=== PATIENT | female | born 1995 | race Hispanic/Latino ===

== ENCOUNTER 2020-10-06 13:22 | Observation (INO) | payer MEDICAID, OTHER ==
[2020-10-06 14:03] VITALS: BMI 28.0
[2020-10-06] MEDS ORDERED: Acetaminophen 325 MG TAB PO PRN (14:07)
[2020-10-06] MEDS ORDERED: hydrALAZINE 20 MG/ML VIAL SLOW IVP PRN (14:07)
[2020-10-06] MEDS ORDERED: Lactated Ringer's 1,000 ML IV SCH (14:15)
[2020-10-06 14:50] LABS: Bilirubin Neg (Negative); Blood, Urine Negative (Negative); Clarity Clear (Clear); Glucose, Urine (Dipstick) Normal (Negative); Ketone, Urine 150 mg/dL (Negative); Leukocyte 25 (Negative); Nitrite Negative (Negative); Protein, Urine (Dipstick) 15 mg/dl (Neg-Trace); pH, Urine 6.5 (5.0-9.0)
[2020-10-06 15:01] LABS: Bacteria/HPF Rare-Few HPF (None Seen); Mucous/LPF Rare LPF (<2+); RBC/HPF 0-3 HPF (0-3); WBC/HPF 0-3 HPF (0-3)
[2020-10-06 15:03] LABS: #Monocytes 1.3 10x3/uL (0.0-1.1); #Neutrophils 10.3 10x3/uL (1.5-8.4); %Basophils 0.2 % (0.0-2.0); %Eosinophils 0.1 % (0.0-6.0); %Lymphocytes 7.8 % (18.0-47.0); %Monocytes 10.4 % (0.0-10.0); %Neutrophils 80.5 % (40.0-75.0); Hemoglobin 9.7 g/dL (12.0-15.5); Mean Corpuscular HGB CONC 31.5 g/dL (32.0-36.0); Mean Corpuscular Hemoglobin 26.1 pg (27.0-33.0); Mean Platelet Volume 10.7 fl (7.4-10.4); Platelet Count 240 10x3/uL (150-450); Red Blood Cell (RBC) Count 3.71 10x6/uL (3.90-5.03); White Blood Cell (WBC) Count 12.8 10x3/uL (3.5-10.5)
[2020-10-06] MEDS ORDERED: Promethazine HCl 25 MG/ML VIAL IM PRN (16:27)
[2020-10-06] MEDS ORDERED: Ondansetron PF 4 MG/2 ML Vial IVP PRN (16:27)
[2020-10-06 17:39] LABS: Amphetamine Not Detected (NotDetected); Barbiturates Screen Not Detected (NotDetected); Benzodiazepine Screen Not Detected (NotDetected); Cocaine Metabolite Screen Not Detected (NotDetected); Methadone Not Detected (NotDetected); Methamphetamine Not Detected (NotDetected); Opiate Screen Not Detected (NotDetected); Oxycodone Screen Not Detected (NotDetected); Phencyclidine (PCP) Not Detected (NotDetected); THC/Cannabinoid Screen Not Detected (NotDetected); Tricyclic Screen Not Detected (NotDetected)
[2020-10-06] MEDS: cefTRIAXone\\ROCEPHIN 1 GM in Sodium Chloride 0.9% 100 ML IVPB SCH (18:23)
[2020-10-06] MEDS: Lactated Ringer's 1,000 ML IV SCH (19:43)
[2020-10-06] MEDS: Acetaminophen 500 MG TAB PO PRN (21:18)
[2020-10-06 23:27] LABS: Amnisure Test No Membranes Rupture (No Rupture)
[2020-10-07] MEDS: Lactated Ringer's 1,000 ML IV SCH ×2 (00:02→10:10)
[2020-10-07] MEDS: cefTRIAXone\\ROCEPHIN 1 GM in Sodium Chloride 0.9% 100 ML IVPB SCH (05:13)
[2020-10-07] MEDS: Acetaminophen 500 MG TAB PO PRN (05:27)
[2020-10-07] MEDS ORDERED: Acetaminophen 500 MG TAB PO PRN (09:11)
[2020-10-07] MEDS ORDERED: Ferrous Sulfate 325 MG TAB PO SCH ×2 (09:45→17:00)
[2020-10-07] MEDS ORDERED: cefTRIAXone\\ROCEPHIN 2 GM in Sodium Chloride 0.9% 100 ML IVPB SCH (16:00)
[2020-10-07 16:41] VITALS: BP 109/61; TEMP 98.4
== END 2020-10-07 17:50 | disposition home health service, planned readmission (86) ==
LOC: CSHLD/OP 13:22 → CSHLD 16:27 → CSHANTE 10-07 09:25
PROVIDERS: ADMIT Family Medicine; ATTEND Family Medicine
DX: O47.03 False labor before 37 completed weeks of gestation, third trimester (principal); O99.013 Anemia complicating pregnancy, third trimester; D50.9 Iron deficiency anemia, unspecified; O23.43 Unspecified infection of urinary tract in pregnancy, third trimester; O99.891 Other specified diseases and conditions complicating pregnancy; R00.0 Tachycardia, unspecified; O98.713 Human immunodeficiency virus [HIV] disease complicating pregnancy, third trimester; Z21 Asymptomatic human immunodeficiency virus [HIV] infection status; Z3A.36 36 weeks gestation of pregnancy
CPT/HCPCS: 80306; 81003; 81015; 84112; 85025; 87086; 96374; 96376; 99285; G0378; J0696; J3490

== ENCOUNTER 2021-12-09 04:41 | Inpatient (IN) | payer OTHER ==
[2021-12-09] MEDS ORDERED: hydrALAZINE 20 MG/ML VIAL SLOW IVP PRN ×2 (05:12→11:08)
[2021-12-09] MEDS ORDERED: Promethazine HCl 25 MG/ML VIAL IM PRN ×3 (05:12→11:08)
[2021-12-09] MEDS ORDERED: Lactated Ringer's 1,000 ML IV SCH (05:12)
[2021-12-09] MEDS ORDERED: Famotidine/PF 20 mg/2ml Vial SLOW IVP PRN (05:12)
[2021-12-09] MEDS ORDERED: Ondansetron PF 4 MG/2 ML Vial IVP PRN ×2 (05:12→08:48)
[2021-12-09] MEDS ORDERED: Bicitra 30 ML UDCUP PO PRN (05:12)
[2021-12-09] MEDS ORDERED: ceFAZolin 2 GM/Dextrose 50 ML 2 GM in Premix Bag 1 BAG IVPB SCH (05:12)
[2021-12-09 05:17] VITALS: BMI 28.2
[2021-12-09 05:56] LABS: Hemoglobin 9.5 g/dL (12.0-15.5); Mean Corpuscular HGB CONC 30.4 g/dL (32.0-36.0); Mean Corpuscular Hemoglobin 22.8 pg (27.0-33.0); Mean Corpuscular Volume 75.2 fl (81.6-98.3); Mean Platelet Volume 11.2 fl (7.4-10.4); Platelet Count 246 10x3/uL (150-450); RBC Distribution Width 17.8 % (11.5-14.5); Red Blood Cell (RBC) Count 4.16 10x6/uL (3.90-5.03); White Blood Cell (WBC) Count 9.4 10x3/uL (3.5-10.5)
[2021-12-09 06:26] LABS: Syphilis Antibody Nonreactive (Nonreactive); Syphilis Antibody Index 0.05 S/CO (<1.00 Non-Reactive)
[2021-12-09 06:28] LABS: Hep B Surf Ag Non-Reactive S/CO (NonReactive)
[2021-12-09 06:46] LABS: HBSAg Index 0.17 S/CO (0-0.99)
[2021-12-09] MEDS ORDERED: CEFAZOLIN 2 GM VIAL ONE (07:00)
[2021-12-09] MEDS ORDERED: Oxytocin 10 UNITS/ML VIAL ONE (07:23)
[2021-12-09] MEDS ORDERED: PHENYLEPHRINE-NS 100 MCG/ML 10 ML SYRINGE ONE (07:23)
[2021-12-09] MEDS ORDERED: Morphine PF 10 MG/10 ML VIAL ONE (07:23)
[2021-12-09] MEDS ORDERED: Dexamethasone 4 mg/ml Vial ONE (07:23)
[2021-12-09] MEDS ORDERED: Fentanyl 100 MCG/2 ML VIAL ONE (07:23)
[2021-12-09] MEDS ORDERED: ePHEDrine Sulfate 50 MG/10 ML VIAL ONE (07:23)
[2021-12-09] MEDS ORDERED: Ketorolac Tromethamine 30 MG/ML VIAL ONE (07:23)
[2021-12-09] MEDS ORDERED: Ondansetron PF 4 MG/2 ML Vial ONE (07:23)
[2021-12-09 07:47] LABS: SARS-CoV-2 NAA Rapid Test DETECTED (NotDetected)
[2021-12-09] MEDS ORDERED: Moisturizing Cream (Eucerin) 113 GM JAR TOP PRN (08:48)
[2021-12-09] MEDS ORDERED: Naloxone HCl 0.4 mg/ml Vial IVP PRN ×2 (08:48)
[2021-12-09] MEDS ORDERED: Promethazine HCl 25 MG SUPP PR PRN (08:48)
[2021-12-09] MEDS ORDERED: diphenhydrAMINE 50 MG/ML VIAL IVP PRN (08:48)
[2021-12-09] MEDS ORDERED: Fentanyl 100 MCG/2 ML VIAL SLOW IVP PRN (08:48)
[2021-12-09] MEDS ORDERED: Meperidine HCl/PF 25 MG/ML VIAL SLOW IVP PRN (08:48)
[2021-12-09] MEDS ORDERED: Naloxone HCl 0.4 mg/ml Vial IV PRN (08:48)
[2021-12-09] MEDS ORDERED: Ondansetron HCl/PF 4 MG/2 ML Vial IVP PRN (08:48)
[2021-12-09] MEDS ORDERED: HYDROmorphone 2 MG/ML VIAL SLOW IVP PRN (08:48)
[2021-12-09] MEDS ORDERED: Ketorolac Tromethamine 30 MG/ML VIAL IVP PRN (08:48)
[2021-12-09] MEDS ORDERED: Communication Order-Pharmacy FS SCH (09:00)
[2021-12-09] MEDS ORDERED: Ketorolac Tromethamine 30 MG/ML VIAL IVP SCH (09:00)
[2021-12-09] MEDS ORDERED: Lanolin Ointment 7 GM TUBE TOP PRN (11:08)
[2021-12-09] MEDS ORDERED: Simethicone Chewable 80 MG TAB PO PRN (11:08)
[2021-12-09] MEDS ORDERED: Bisacodyl 10 MG SUPP PR PRN (11:08)
[2021-12-09] MEDS ORDERED: diphenhydrAMINE 25 MG CAP PO PRN (11:08)
[2021-12-09] MEDS ORDERED: Prenatal Vitamin 1 TAB PO SCH (12:00)
[2021-12-09] MEDS ORDERED: Docusate 100 MG CAP PO SCH (12:00)
[2021-12-09] MEDS ORDERED: Ferrous Sulfate 325 MG TAB PO SCH (12:00)
[2021-12-09] MEDS: Docusate 100 MG CAP PO SCH ×2 (12:16→21:53)
[2021-12-09] MEDS: Ketorolac Tromethamine 30 MG/ML VIAL IVP SCH ×2 (14:33→21:00)
[2021-12-09] MEDS: Ferrous Sulfate 325 MG TAB PO SCH (21:00)
[2021-12-10] MEDS: Ketorolac Tromethamine 30 MG/ML VIAL IVP SCH ×2 (02:59→08:07)
[2021-12-10 04:34] LABS: Hemoglobin 7.5 g/dL (12.0-15.5); Mean Corpuscular HGB CONC 30.5 g/dL (32.0-36.0); Mean Corpuscular Volume 75.5 fl (81.6-98.3); Mean Platelet Volume 10.7 fl (7.4-10.4); Platelet Count 227 10x3/uL (150-450); RBC Distribution Width 17.2 % (11.5-14.5); Red Blood Cell (RBC) Count 3.26 10x6/uL (3.90-5.03); White Blood Cell (WBC) Count 11.1 10x3/uL (3.5-10.5)
[2021-12-10] MEDS: Docusate 100 MG CAP PO SCH ×2 (08:07→19:53)
[2021-12-10] MEDS: Ferrous Sulfate 325 MG TAB PO SCH ×2 (08:07→19:54)
[2021-12-10] MEDS: Prenatal Vitamin 1 TAB PO SCH (08:07)
[2021-12-10] MEDS ORDERED: Boostrix 0.5 ML (Tdap) VIAL IM ONE (11:08)
[2021-12-10] MEDS: HYDROcodone/Acetaminophen 5/325 mg Tablet PO PRN ×3 (11:31→19:54)
[2021-12-10] MEDS: Ibuprofen 800 MG TAB PO SCH ×2 (14:21→21:14)
[2021-12-11] MEDS: HYDROcodone/Acetaminophen 5/325 mg Tablet PO PRN ×3 (01:10→15:57)
[2021-12-11] MEDS: Ibuprofen 800 MG TAB PO SCH (05:01)
[2021-12-11] MEDS: Prenatal Vitamin 1 TAB PO SCH (07:41)
[2021-12-11] MEDS: Docusate 100 MG CAP PO SCH (07:41)
[2021-12-11] MEDS: Ferrous Sulfate 325 MG TAB PO SCH (07:41)
[2021-12-11] MEDS ORDERED: Lidocaine 1% MPF 2 ML VIAL ONE (08:33)
[2021-12-11 10:21] VITALS: BP 90/56; TEMP 98.3
== END 2021-12-11 17:00 | disposition home or self-care (01) | DRG 786 ==
LOC: CSHLD 04:41 → CSHANTE 12:44
PROVIDERS: ADMIT Family Medicine; ATTEND Family Medicine
PROC: 10D00Z1 Extraction of Products of Conception, Low, Open Approach (ICD-10-PCS; principal; 2021-12-09)
DX: O34.211 Maternal care for low transverse scar from previous cesarean delivery (principal); U07.1 COVID-19; O98.52 Other viral diseases complicating childbirth; O98.72 Human immunodeficiency virus [HIV] disease complicating childbirth; Z37.0 Single live birth; Z3A.38 38 weeks gestation of pregnancy; Z21 Asymptomatic human immunodeficiency virus [HIV] infection status; O34.13 Maternal care for benign tumor of corpus uteri, third trimester; D25.9 Leiomyoma of uterus, unspecified
CPT/HCPCS: 36415; 51702; 85027; 86780; 86850; 86900; 86901; 87340; J1100; J1200; J1885; J2274; J2405; J2590; J3010; U0002